=== PATIENT | male | born 1975 ===

== ENCOUNTER 2017-02-18 09:32 | Emergency (ER) | payer BC ==
[2017-02-18 09:45] VITALS: BMI 20.1
--- NOTE | 2017-02-18 09:48 | ED PDOC ---
HPI: Chest Pain Time Seen by Provider: 02/18/17 09:35 Chief Complaint (Nursing): Chest Pain Chief Complaint (Provider): Chest Pain History Per: Patient History/Exam Limitations: no limitations Onset/Duration Of Symptoms: Hrs Current Symptoms Are (Timing): Still Present Quality: "Pain" Modifying Factors: None Exacerbating Factors: None Alleviating Factors: None Additional Complaint(s): Patient is a 41 year old male who presents to ED for chest pain left sided and left arm pain that began last night. Patient states he has a history of high cholesterol but is non complaint with medication. States that due to the pain last night he did take his Simvistatin. Pain is described as left sided with radiation into the left arm and not feeling well. Patient also reports that he boarder line DM but no physical exam/primary doctor in 2 years. Of note patient last used Cocaine 2 days ago and last alcoholic drink 8 days ago. Past Medical History Reviewed: Historical Data, Nursing Documentation, Vital Signs Vital Signs: Last Vital Signs Temp 97.6 F 02/18/17 10:16 Pulse 69 02/18/17 10:16 Resp 20 02/18/17 10:16 BP 90/70 L 02/18/17 10:16 Pulse Ox 99 02/18/17 10:21 - Medical History PMH: Diabetes, Hypercholesterolemia Denies: Chronic Kidney Disease - Surgical History Other surgeries: left wrist - Family History Family History: States: No Known Family Hx - Social History Current smoker - smoking cessation education provided: Yes Alcohol: Occasional (last dirnk 8 days ago) Drugs: Cocaine (occ) - Home Medications Home Medications: Ambulatory Orders Medication Instructions Recorded [place]-3 Fatty Acids/Fish Oil [Fish 1,000 mg PO BID 02/18/17 Oil 1,000 mg Capsule] Rosuvastatin Calcium [Crestor] 5 mg PO DAILY 02/18/17 - Allergies Allergies/Adverse Reactions: Allergies Allergy/AdvReac Type Severity Reaction Status Date / Time chlorpromazine HCl Allergy ANAPHYLAXIS Verified 02/18/17 09:46 [From Thorazine] lithium Allergy ANAPHYLAXIS Verified 02/18/17 09:46 shellfish derived Allergy ANAPHYLAXIS Verified 02/18/17 09:46 LEIGHA Risk Score for UA/NSTEMI - LEIGHA Risk Score Age > 64: NO 3 or more CAD Risk Factors: YES Known CAD (Stenosis greater than 50%): NO Aspirin use in past 7 days: NO Severe Angina: YES EKG ST changes greater than 0.5mm: YES Positive Cardiac Marker: NO LEIGHA Score: 3 Risk %: 13% Review of Systems ROS Statement: Except As Marked, All Systems Reviewed And Found Negative Cardiovascular: Positive for: Chest Pain (left arm [place]). Negative for: Palpitations, Light Headedness Respiratory: Negative for: Shortness of Breath Gastrointestinal: Negative for: Nausea, Vomiting, Abdominal Pain Musculoskeletal: Negative for: Neck Pain Skin: Negative for: Rash Physical Exam - Reviewed Nursing Documentation Reviewed: Yes Vital Signs Reviewed: Yes - Physical Exam Appears: Positive for: Non-toxic, In Acute Distress Head Exam: Positive for: ATRAUMATIC Skin: Positive for: Normal Color, Warm. Negative for: Diaphoresis Neck: Positive for: Normal, Painless ROM Cardiovascular/Chest: Positive for: Regular Rate, Rhythm. Negative for: Murmur , Tachycardia Respiratory: Positive for: Normal Breath Sounds. Negative for: Respiratory Distress Gastrointestinal/Abdominal: Positive for: Normal Exam. Negative for: Tenderness Back: Positive for: Normal Inspection Extremity: Positive for: Normal ROM. Negative for: Pedal Edema, Calf Tenderness Neurologic/Psych: Positive for: Alert, Oriented - Laboratory Results Result Diagrams: 02/18/17 09:45 02/18/17 09:45 - ECG ECG: Positive for: Interpreted By Me ECG Rhythm: Positive for: ST/T Changes Interpretation Of Abn EKG: (+) ST elevation O2 Sat by Pulse Oximetry: 99 (RA) Pulse Ox Interpretation: Normal - Core Measure Core Measure Indicators: Code Heart - Critical Care Total Time (In Min): 30 Medical Decision Making Medical Decision Making: Time: 939 Initial impression: Chest pain Initial plan: 0939: EKG performed 0941:Code heart called upon my reviewe of EKG appears to be inferior wall ST elevation. Case discussed with Dr. Kaba cath automation qa lead - he recommended Brilinta , ASA 325, Heparin Bolus and Heparin Drip Case discussed with [facility] who is preparing the crime laboratory analyst and [facility] contacted, pending arrival Given that this is an inferior wall MO and systolic bp is 108, Nitro will be with held and 2 mg Morphine given instead to treat pain -- Type and screen -- CMP -- Troponin -- CBC -- PT/PTT -- ASA, Brilinta, Heparin bolus and drip as per Dr Angeles instructions pt reevaluated sevearl times while in the ER. vitals stable. 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 pt reports that he does not want a blood transfusion at any time. Instructed that this information will be documented but he will need to relay this information to the staff at [facility]. Time: 1005 [facility] in ED ready for transport DX ACUTE MO inferior wall Scribe Attestation: Documented by Charlotte Maravilla acting as a scribe for Pedro Javed MD MD Scribe Attestation: All medical record entries made by the Scribe were at my direction and personally dictated by me. I have reviewed the chart and agree that the record accurately reflects my personal performance of the history, physical exam, medical decision making, and the department course for this patient. I have also personally directed, reviewed, and agree with the discharge instructions and disposition. Disposition - Clinical Impression Clinical Impression: Chest pain, Acute MO - Patient ED Disposition Is Patient to be Admitted: Yes - Disposition Disposition: Other Institution ([facility] warehouse general laborer) Disposition Time: 10:00 Condition: SERIOUS
[2017-02-18] MEDS ORDERED: Heparin25000 units/250ml 1/2NS 250 ML IV ONE (09:50)
[2017-02-18 10:04] LABS: BASO % 0.5 % (0.0-2.0); EOS # 0.1 K/uL (0.0-0.7); EOS % 0.9 % (0.0-4.0); HEMATOCRIT 45.4 % (35.0-51.0); LYMPH # 1.6 K/uL (1.0-4.3); LYMPH % 18.5 % (20.0-40.0); MEAN CELL VOLUME 84.8 fl (80.0-94.0); MEAN CORPUSCULAR HEMOGLOBIN 29.2 pg (27.0-31.0); MEAN CORPUSCULAR HGB CONC 34.5 g/dL (33.0-37.0); MONO # 0.9 K/uL (0.0-0.8); MONO % 11.2 % (0.0-10.0); NEUT # 5.8 K/uL (1.8-7.0); NEUT % 68.9 % (50.0-75.0); RED CELL DISTRIBUTION WIDTH 13.4 % (11.5-14.5); WHITE BLOOD COUNT 8.5 K/uL (4.8-10.8)
[2017-02-18 10:07] VITALS: BP 90/70; RESP 20
[2017-02-18] MEDS ORDERED: Sodium Chloride 0.9% 1,000 ML IV STA (10:07)
[2017-02-18 10:08] VITALS: O2SAT 99
[2017-02-18 10:13] LABS: CHLORIDE 102 mmol/L (98-107); POTASSIUM 4.1 MMOL/L (3.6-5.0); SODIUM 141 mmol/l (132-148)
[2017-02-18] MEDS ORDERED: Heparin 25,000units in D5W 250 ML IV SCH (10:15)
[2017-02-18] MEDS ORDERED: Heparin 25,000units in D5W 250 ML IV ONE (10:15)
[2017-02-18 10:16] LABS: ALB/GLOB RATIO 1.2 (1.0-2.1); ALKALINE PHOSPHATASE 64 U/L (38-126); ALT/SGPT 44 U/L (21-72); AST/SGOT 78 U/L (17-59); BILIRUBIN,TOTAL 0.6 mg/dl (0.2-1.3); BLOOD UREA NITROGEN 15 mg/dl (9-20); CALCIUM 9.2 mg/dL (8.4-10.2); CARBON DIOXIDE 25 mmol/L (22-30); GFR AFRICAN-AMERICAN > 60; GLUCOSE,RANDOM 131 mg/dL (75-110); TOTAL PROTEIN 7.8 G/DL (6.3-8.2)
[2017-02-18 10:19] VITALS: PULSE 69; TEMP 97.6
[2017-02-18 10:29] LABS: PARTIAL THROMBOPLASTIN TIME 29.4 SECONDS (23.3-32.5)
== END 2017-02-18 10:15 | disposition short-term general hospital (02) ==
LOC: H.ER 09:32
DX: I21.3 ST elevation (STEMI) myocardial infarction of unspecified site (principal); R07.9 Chest pain, unspecified; E11.9 Type 2 diabetes mellitus without complications; F17.200 Nicotine dependence, unspecified, uncomplicated; E78.00 Pure hypercholesterolemia, unspecified
CPT/HCPCS: 80053; 82948; 84484; 85025; 85610; 85730; 96374; 99285; J1644; J2270

== ENCOUNTER 2017-06-02 03:16 | Observation (INO) | payer BC ==
[2017-06-02 03:17] VITALS: BMI 20.1
--- NOTE | 2017-06-02 04:09 | ED PDOC ---
HPI: Chest Pain Time Seen by Provider: 06/02/17 03:49 Chief Complaint (Nursing): Trauma Chief Complaint (Provider): chest pain, left arm pain History Per: Patient History/Exam Limitations: no limitations Onset/Duration Of Symptoms: Days (3), Waxing/Waning Additional History Per: Patient Additional Complaint(s): 41 y/o male presents for eval of intermittent chest pain x 3 days, none at present. Patient states he came to ED tonight because he began to feel pain, with "tingling" sensation in left arm; and that these symptoms were similar to when he was diagnosed with a heart attack in february of this year. Patient states he has been under a lot of stress at work and is unsure if this could be stress/anxiety related, but notes waking up from sleep worried. Denies fever, cough, congestion, shortness of breath, palpitations, leg pain/swelling, recent travel, tobacco use. PMD: [place] Past Medical History Reviewed: Historical Data, Nursing Documentation, Vital Signs Vital Signs: Last Vital Signs Temp 98 F 06/02/17 03:56 Pulse 96 H 06/02/17 03:56 Resp 18 06/02/17 03:56 BP 135/81 06/02/17 03:56 Pulse Ox 97 06/02/17 05:14 - Medical History PMH: Hypercholesterolemia Denies: Chronic Kidney Disease - Surgical History Surgical History: No Surg Hx - Family History Family History: States: Unknown Family Hx - Home Medications Home Medications: Ambulatory Orders Medication Instructions Recorded [place]-3 Fatty Acids/Fish Oil [Fish 1,000 mg PO BID 02/18/17 Oil 1,000 mg Capsule] Rosuvastatin Calcium [Crestor] 5 mg PO DAILY 02/18/17 - Allergies Allergies/Adverse Reactions: Allergies Allergy/AdvReac Type Severity Reaction Status Date / Time chlorpromazine HCl Allergy ANAPHYLAXIS Verified 02/18/17 09:46 [From Thorazine] lithium Allergy ANAPHYLAXIS Verified 02/18/17 09:46 shellfish derived Allergy ANAPHYLAXIS Verified 02/18/17 09:46 LEIGHA Risk Score for UA/NSTEMI - LEIGHA Risk Score Age > 64: NO 3 or more CAD Risk Factors: NO Known CAD (Stenosis greater than 50%): NO Aspirin use in past 7 days: YES Severe Angina: NO EKG ST changes greater than 0.5mm: NO Positive Cardiac Marker: NO LEIGHA Score: 1 Risk %: 5% Review of Systems ROS Statement: Except As Marked, All Systems Reviewed And Found Negative Cardiovascular: Positive for: Chest Pain Musculoskeletal: Positive for: Arm Pain Physical Exam - Reviewed Nursing Documentation Reviewed: Yes Vital Signs Reviewed: Yes - Physical Exam Appears: Positive for: Well, Non-toxic, No Acute Distress Head Exam: Positive for: ATRAUMATIC, NORMAL INSPECTION, NORMOCEPHALIC Skin: Positive for: Normal Color Eye Exam: Positive for: Normal appearance ENT: Positive for: Normal ENT Inspection Cardiovascular/Chest: Positive for: Regular Rate, Rhythm Respiratory: Positive for: Normal Breath Sounds Gastrointestinal/Abdominal: Positive for: Normal Exam Back: Positive for: Normal Inspection Extremity: Positive for: Normal ROM Neurologic/Psych: Positive for: Alert, Oriented - Laboratory Results Result Diagrams: 06/02/17 04:25 06/02/17 04:25 - ECG ECG: Positive for: Viewed By Me (reviewed by ED attending) ECG Rhythm: Positive for: Sinus Rhythm O2 Sat by Pulse Oximetry: 97 Pulse Ox Interpretation: Normal - Radiology X-Ray: Viewed By Me X-Ray Interpretation: No Acute Disease - Progress ED Course And Treament: labs, ekg, chest xray, Nitro SL Chart reviewed, concluded to have had vasospastic acute OH, likely secondary to cocaine use. Will place in tele observation for chest pain to rule out ACS. Dr. Mera spoke with Ethan Stevens NP regarding admission. Disposition - Clinical Impression Clinical Impression: Chest pain - Disposition Disposition Time: 05:07 Condition: FAIR - Pt Status Changed To: Hospital Disposition Of: Observation - POA Present On Arrival: None
[2017-06-02 04:30] LABS: BASO % 0.6 % (0.0-2.0); EOS % 0.4 % (0.0-4.0); HEMOGLOBIN 15.6 g/dL (12.0-18.0); LYMPH # 1.6 K/uL (1.0-4.3); LYMPH % 26.1 % (20.0-40.0); MEAN CELL VOLUME 84.2 fl (80.0-94.0); MEAN CORPUSCULAR HEMOGLOBIN 28.6 pg (27.0-31.0); MEAN CORPUSCULAR HGB CONC 33.9 g/dL (33.0-37.0); MEAN PLATELET VOLUME 7.4 fl (7.2-11.7); MONO # 0.4 K/uL (0.0-0.8); MONO % 6.8 % (0.0-10.0); NEUT % 66.1 % (50.0-75.0); NRBC % 0.2 % (0.0-0.0); RBC 5.45 Mil/uL (4.40-5.90); RED CELL DISTRIBUTION WIDTH 13.8 % (11.5-14.5)
[2017-06-02 04:37] LABS: ALB/GLOB RATIO 1.3 (1.0-2.1); ALBUMIN 4.7 g/dL (3.5-5.0); ALT/SGPT 50 U/L (21-72); AST/SGOT 29 U/L (17-59); BLOOD UREA NITROGEN 12 mg/dl (9-20); CALCIUM 9.5 mg/dL (8.4-10.2); GFR AFRICAN-AMERICAN > 60; GFR NON-AFRICAN AMERICAN > 60
[2017-06-02 04:47] LABS: BARBITURATES, UR NEGATIVE (NEGATIVE); BENZODIAZEPINES, UR NEGATIVE (NEGATIVE); OPIATES, UR NEGATIVE (NEGATIVE); PHENCYCLIDINE, UR NEGATIVE (NEGATIVE)
--- NOTE | 2017-06-02 07:29 | CP.PCM.HP ---
History of Present Illness - History of Present Illness History of Present Illness: pt admitted for left arm numbness/palpitations yesterday. pt had cp 2 days ago after being stressed at a movie. this pain was relieved w/ walking. at present. no f/c, n/v/d. no cp, dyspnea palpitations. 1st trop negative Present on Admission - Present on Admission Any Indicators Present on Admission: No Review of Systems - Cardiovascular Cardiovascular: As Per HPI, Chest Pain, Palpitations Past Patient History - Past Social History Smoking Status: Former Smoker - CARDIAC Hx Cardiac Disorders: Yes - PULMONARY Hx Respiratory Disorders: No - NEUROLOGICAL Hx Neurological Disorder: No - RENAL Hx Chronic Kidney Disease: No - HEMATOLOGICAL/ONCOLOGICAL Hx Blood Disorders: No - INTEGUMENTARY Hx Dermatological Problems: No - GASTROINTESTINAL Hx Gastrointestinal Disorders: No - GENITOURINARY/GYNECOLOGICAL Hx Genitourinary Disorders: No - PSYCHIATRIC Hx Psychophysiologic Disorder: No Hx Substance Use: Yes - SURGICAL HISTORY Hx Surgeries: Yes Other/Comment: cyst removed from left wrist 2014 - ANESTHESIA Hx Anesthesia: Yes Meds Allergies/Adverse Reactions: Allergies Allergy/AdvReac Type Severity Reaction Status Date / Time chlorpromazine HCl Allergy ANAPHYLAXIS Verified 02/18/17 09:46 [From Thorazine] lithium Allergy ANAPHYLAXIS Verified 02/18/17 09:46 shellfish derived Allergy ANAPHYLAXIS Verified 02/18/17 09:46 Physical Exam - Constitutional Appears: Well, Non-toxic, No Acute Distress - Head Exam Head Exam: ATRAUMATIC, NORMAL INSPECTION, NORMOCEPHALIC - Eye Exam Eye Exam: EOMI, Normal appearance, PERRL Pupil Exam: NORMAL ACCOMODATION, PERRL - ENT Exam ENT Exam: Mucous Membranes Moist, Normal Exam - Neck Exam Neck exam: Positive for: Normal Inspection - Respiratory Exam Respiratory Exam: Clear to Auscultation Bilateral, NORMAL BREATHING PATTERN - Cardiovascular Exam Cardiovascular Exam: REGULAR RHYTHM, RRR, +S1, +S2 - GI/Abdominal Exam GI & Abdominal Exam: Normal Bowel Sounds, Soft. absent: Tenderness - Extremities Exam Extremities exam: Positive for: full ROM, normal capillary refill, normal inspection, pedal pulses present - Back Exam Back exam: NORMAL INSPECTION - Neurological Exam Neurological exam: Alert, CN II-XII Intact, Normal Gait, Oriented x3, Reflexes Normal - Psychiatric Exam Psychiatric exam: Normal Affect, Normal Mood - Skin Skin Exam: Dry, Intact, Normal Color, Warm Results - Vital Signs Recent Vital Signs: Last Vital Signs Temp 97.7 F 06/02/17 06:25 Pulse 62 06/02/17 06:25 Resp 20 06/02/17 06:25 BP 123/74 06/02/17 06:25 Pulse Ox 99 06/02/17 06:25 - Labs Result Diagrams: 06/02/17 04:25 06/02/17 04:25 Labs: Laboratory Results - last 24 hr 06/02/17 06/02/17 06/02/17 04:25 04:25 04:29 WBC 6.0 RBC 5.45 Hgb 15.6 Hct 45.9 MCV 84.2 MCH 28.6 MCHC 33.9 RDW 13.8 Plt Count 241 MPV 7.4 Neut % (Auto) 66.1 Lymph % (Auto) 26.1 [place] % (Auto) 6.8 Eos % (Auto) 0.4 Baso % (Auto) 0.6 Neut # 4.0 Lymph # 1.6 Dewitt # 0.4 Eos # 0.0 Baso # 0.0 Sodium 141 Potassium 4.1 Chloride 105 Carbon Dioxide 23 Anion Gap 17 BUN 12 Creatinine 0.9 Est GFR ( Amer) > 60 Est GFR (Non-Af Amer) > 60 Random Glucose 102 Calcium 9.5 Total Bilirubin 0.4 AST 29 ALT 50 Alkaline Phosphatase 52 Troponin I < 0.0120 Total Protein 8.4 H Albumin 4.7 Globulin 3.6 Albumin/Globulin Ratio 1.3 Urine Opiates Screen Negative Urine Methadone Screen Negative Ur Barbiturates Screen Negative Ur Phencyclidine Scrn Negative Ur Amphetamines Screen Negative U Benzodiazepines Scrn Negative U Oth Cocaine Metabols Negative U Cannabinoids Screen Negative Assessment & Plan (1) DVT prophylaxis Assessment and Plan: scd nad aehose ambulation Status: Acute (2) Chest pain Assessment and Plan: trops cardio pt has h/o stemi-cocaine induced ntg prn Status: Acute Decision To Admit - Pt Status Changed To: Hospital Disposition Of: Observation - . Bed Request Type: Telemetry Admitting Physician: John Guzmán
[2017-06-02 08:18] VITALS: RESP 18
[2017-06-02] MEDS ORDERED: Omega-3-Acid Ethyl Esters 1 GM Cap PO SCH (09:00)
--- NOTE | 2017-06-02 14:17 | RAD ---
HISTORY: Chest pain COMPARISON: 02/24/2015 TECHNIQUE: Chest PA and lateral FINDINGS: LUNGS: No active pulmonary disease. PLEURA: No significant pleural effusion identified. No pneumothorax apparent. CARDIOVASCULAR: Normal. OSSEOUS STRUCTURES: No significant abnormalities. VISUALIZED UPPER ABDOMEN: Normal. OTHER FINDINGS: None. IMPRESSION: No active disease. No significant interval change compared to the prior examination(s).
[2017-06-02 16:07] VITALS: BP 120/75; PULSE 65; TEMP 97.5; O2SAT 99
--- NOTE | 2017-06-02 16:58 | CP.PCM.DIS ---
Provider - Provider Date of Admission: 06/02/17 04:20 Attending physician: John Guzmán MD Time Spent in preparation of Discharge (in minutes): 15 Diagnosis - Discharge Diagnosis (1) DVT prophylaxis Status: Acute (2) Chest pain Status: Acute Hospital Course - Lab Results Lab Results: Most Recent Lab Values WBC 6.0 K/uL (4.8-10.8) 06/02/17 04:25 RBC 5.45 Mil/uL (4.40-5.90) 06/02/17 04:25 Hgb 15.6 g/dL (12.0-18.0) 06/02/17 04:25 Hct 45.9 % (35.0-51.0) 06/02/17 04:25 MCV 84.2 fl (80.0-94.0) 06/02/17 04:25 MCH 28.6 pg (27.0-31.0) 06/02/17 04:25 MCHC 33.9 g/dL (33.0-37.0) 06/02/17 04:25 RDW 13.8 % (11.5-14.5) 06/02/17 04:25 Plt Count 241 K/uL (130-400) 06/02/17 04:25 MPV 7.4 fl (7.2-11.7) 06/02/17 04:25 Neut % (Auto) 66.1 % (50.0-75.0) 06/02/17 04:25 Lymph % (Auto) 26.1 % (20.0-40.0) 06/02/17 04:25 [place] % (Auto) 6.8 % (0.0-10.0) 06/02/17 04:25 Eos % (Auto) 0.4 % (0.0-4.0) 06/02/17 04:25 Baso % (Auto) 0.6 % (0.0-2.0) 06/02/17 04:25 Neut # 4.0 K/uL (1.8-7.0) 06/02/17 04:25 Lymph # 1.6 K/uL (1.0-4.3) 06/02/17 04:25 [place] # 0.4 K/uL (0.0-0.8) 06/02/17 04:25 Eos # 0.0 K/uL (0.0-0.7) 06/02/17 04:25 Baso # 0.0 K/uL (0.0-0.2) 06/02/17 04:25 Sodium 141 mmol/l (132-148) 06/02/17 04:25 Potassium 4.1 MMOL/L (3.6-5.0) 06/02/17 04:25 Chloride 105 mmol/L (98-107) 06/02/17 04:25 Carbon Dioxide 23 mmol/L (22-30) 06/02/17 04:25 Anion Gap 17 (10-20) 06/02/17 04:25 BUN 12 mg/dl (9-20) 06/02/17 04:25 Creatinine 0.9 mg/dL (0.8-1.5) 06/02/17 04:25 Est GFR ( Amer) > 60 06/02/17 04:25 Est GFR (Non-Af Amer) > 60 06/02/17 04:25 Random Glucose 102 mg/dL (75-110) 06/02/17 04:25 Calcium 9.5 mg/dL (8.4-10.2) 06/02/17 04:25 Total Bilirubin 0.4 mg/dl (0.2-1.3) 06/02/17 04:25 AST 29 U/L (17-59) 06/02/17 04:25 ALT 50 U/L (21-72) 06/02/17 04:25 Alkaline Phosphatase 52 U/L (38-126) 06/02/17 04:25 Troponin I < 0.0120 ng/mL (0.00-0.120) 06/02/17 12:27 Total Protein 8.4 G/DL (6.3-8.2) H 06/02/17 04:25 Albumin 4.7 g/dL (3.5-5.0) 06/02/17 04:25 Globulin 3.6 gm/dL (2.2-3.9) 06/02/17 04:25 Albumin/Globulin Ratio 1.3 (1.0-2.1) 06/02/17 04:25 Urine Opiates Screen Negative (NEGATIVE) 06/02/17 04:29 Urine Methadone Screen Negative (NEGATIVE) 06/02/17 04:29 Ur Barbiturates Screen Negative (NEGATIVE) 06/02/17 04:29 Ur Phencyclidine Scrn Negative (NEGATIVE) 06/02/17 04:29 Ur Amphetamines Screen Negative (NEGATIVE) 06/02/17 04:29 U Benzodiazepines Scrn Negative (NEGATIVE) 06/02/17 04:29 U Oth Cocaine Metabols Negative (NEGATIVE) 06/02/17 04:29 U Cannabinoids Screen Negative (NEGATIVE) 06/02/17 04:29 Discharge Exam - Head Exam Head Exam: ATRAUMATIC, NORMAL INSPECTION, NORMOCEPHALIC Discharge Plan - Follow Up Plan Condition: FAIR Disposition: HOME/ ROUTINE Additional Instructions: cleared by cardio. trop negative x 2. final dx-cp, rted prn, meds per med rec, f/u rmg 2 days
--- NOTE | 2017-06-02 17:46 | CP.PCM.CON ---
History of Present Illness - History of Present Illness History of Present Illness: I was asked to see patient by Dr. Guzmán and Ethan Stevens APN. Patient is a 41 year old male with PMH [place] who presents with chest pain. The patient had a previous NSTEMI in association with recreational drug usage. He had a cardiac cath which reporytedly was negative for CAD. The patient reports usbsternal chest discomfort. He though he had heaviness in the arm. He became anxious and went to the hospital for further management. Review of Systems - Constitutional Constitutional: absent: As Per HPI, Anorexia, Chills, Daytime Sleepiness, Excessive Sweating, Fatigue, Fever, Frequent Falls, Headache, Increased Appetite , Lethargy, Malaise, Night Sweats, Snoring, Sleep Apnea, Weight Gain, Weight Loss, Weakness, Other - EENT Eyes: absent: As Per HPI, Blind Spots, Blurred Vision, Change in Vision, Decreased Night Vision, Diplopia, Discharge, Dry Eye, Exophthalmos, Floaters, Irritation, Itchy Eyes, Loss of Peripheral Vision, Pain, Photophobia, Requires Corrective Lenses, Sees Flashes, Spots in Vision, Tunnel Vision, Other Visual Disturbances, Loss of Vision, Other Ears: absent: As Per HPI, Decreased Hearing, Ear Discharge, Ear Pain, Tinnitus, Abnormal Hearing, Disequilibrium, Dizziness, Other Nose/Mouth/Throat: absent: As Per HPI, Epistaxis, Nasal Congestion, Nasal Discharge, Nasal Obstruction, Nasal Trauma, Nose Pain, Post Nasal Drip, Sinus Pain, Sinus Pressure, Bleeding Gums, Change in Voice, Dental Pain, Dry Mouth, Dysphagia, Halitosis, Hoarsness, Lip Swelling, Mouth Lesions, Mouth Pain, Odynophagia, Sore Throat, Throat Swelling, Tongue Swelling, Facial Pain, Neck Pain, Neck Mass, Other - Cardiovascular Cardiovascular: Chest Pain - Respiratory Respiratory: absent: As Per HPI, Cough, Dyspnea, Hemoptysis, Dyspnea on Exertion , Wheezing, Snoring, Stridor, Pain on Inspiration, Chest Congestion, Excessive Mucous Production, Change in Mucous Color, Pain with Coughing, Other - Gastrointestinal Gastrointestinal: absent: As Per HPI, Abdominal Pain, Belching, Bloating, Change in Bowel Habits, Change in Stool Character, Coffee Ground Emesis, Constipation, Cramping, Diarrhea, Dyspepsia, Dysphagia, Early Satiety, Excessive Flatus, Fecal Incontinence, Heartburn, Hematemesis, Hematochezia, Loose Stools, Melena, Nausea, Odynophagia, Temesmus, Vomiting, Other - Genitourinary Genitourinary: absent: As Per HPI, Change in Urinary Stream, Difficulty Urinating, Dysuria, Flank Pain, Hematuria, Pyuria, Nocturia, Urinary Incontinence, Urinary Frequency, Urinary Hesitance, Urinary Urgency, Voiding Freq/Small Amts, Freq UTI, Hx Renal/Bladder Calculi, Hx /Renal Surgery, Bladder Distension, Other - Musculoskeletal Musculoskeletal: absent: As Per HPI, Abnormal Gait, Arthralgias, Atrophy, Back Pain, Deformity, Joint Swelling, Limited Range of Motion, Loss of Height, Muscle Cramps, Muscle Weakness, Myalgias, Neck Pain, Numbness, Radiating Pain into Limb, Stiffness, Tingling, Other - Integumentary Integumentary: absent: As Per HPI, Acne, Alopecia, Bleeding Lesions, Change in Hair, Change in Nails, Change in Pigmentation, Changing Lesions, Dry Skin, Erythema, Furuncle, Hirsutism, Lesions, New Lesions, Non-Healing Lesions, Photosensitivity, Pruritus, Rash, Skin Pain, Skin Ulcer, Sores, Striae, Swelling , Unusual Bruising, Wounds, Jaundice, Other - Neurological Neurological: absent: As Per HPI, Abnormal Gait, Abnormal Hearing, Abnormal Movements, Abnormal Speech, Behavioral Changes, Burning Sensations, Confusion, Convulsions, Disequilibrium, Dizziness, Numbness, Focal Weakness, Frequent Falls , Headaches, Lack of Coordination, Loss of Vision, Memory Loss, Paresthesias, Radicular Pain, Restless Legs, Sensory Deficit, Syncope, Tingling, Tremor, Vertigo, Weakness, Other Visual Disturbances, Other - Psychiatric Psychiatric: absent: As Per HPI, Abnormal Sleep Pattern, Anhedonia, Anxiety, Auditory Hallucinations, Behavioral Changes, Change in Appetite, Change in Libido, Confusion, Depression, Difficulty Concentrating, Hallucinations, Homicidal Ideation, Hopelessness, Irritability, Memory Loss, Mood Swings, Panic Attacks, Paranoia, Suicidal Ideation, Visual Hallucinations, Tactile Hallucinations, Other - Endocrine Endocrine: absent: As Per HPI, Change in Body Appearance, Change in Libido, Cold Intolorance, Deepening of Voice, Excessive Sweating, Fatigue, Flushing, Heat Intolorance, Increase in Ring/Shoe/Hat Size, Palpitations, Polydipsia, Polyphagia, Polyuria, Other - Hematologic/Lymphatic Hematologic: absent: As Per HPI, Easy Bleeding, Easy Bruising, Lymphadenopathy, Other Past Patient History - Past Social History Smoking Status: Former Smoker - CARDIAC Hx Cardiac Disorders: Yes - PULMONARY Hx Respiratory Disorders: No - NEUROLOGICAL Hx Neurological Disorder: No - RENAL Hx Chronic Kidney Disease: No - HEMATOLOGICAL/ONCOLOGICAL Hx Blood Disorders: No - INTEGUMENTARY Hx Dermatological Problems: No - MUSCULOSKELETAL/RHEUMATOLOGICAL Hx Falls: No - GASTROINTESTINAL Hx Gastrointestinal Disorders: No - GENITOURINARY/GYNECOLOGICAL Hx Genitourinary Disorders: No - PSYCHIATRIC Hx Psychophysiologic Disorder: No Hx Substance Use: Yes - SURGICAL HISTORY Hx Surgeries: Yes Other/Comment: cyst removed from left wrist 2013 - ANESTHESIA Hx Anesthesia: Yes Meds Allergies/Adverse Reactions: Allergies Allergy/AdvReac Type Severity Reaction Status Date / Time chlorpromazine HCl Allergy ANAPHYLAXIS Verified 02/18/17 09:46 [From Thorazine] lithium Allergy ANAPHYLAXIS Verified 02/18/17 09:46 shellfish derived Allergy ANAPHYLAXIS Verified 02/18/17 09:46 - Medications Medications: Current Medications Aspirin (Aspirin Chewable) 81 mg PO DAILY [facility] Last Admin: 06/02/17 14:41 Dose: Not Given Atorvastatin Calcium (Lipitor) 10 mg PO DAILY [facility] Last Admin: 06/02/17 14:42 Dose: Not Given Nitroglycerin (Nitrostat Sl Tab) 0.4 mg SL Q5M PRN PRN Reason: cp [id number] Ethyl Esters (Lovaza) 1 gm PO BID [facility] Last Admin: 06/02/17 14:40 Dose: Not Given Physical Exam - Constitutional Appears: Non-toxic - Head Exam Head Exam: NORMAL INSPECTION - Eye Exam Eye Exam: Normal appearance - ENT Exam ENT Exam: Mucous Membranes Moist - Neck Exam Neck exam: Positive for: Full Rom - Respiratory Exam Respiratory Exam: NORMAL BREATHING PATTERN - Cardiovascular Exam Cardiovascular Exam: REGULAR RHYTHM - GI/Abdominal Exam GI & Abdominal Exam: Normal Bowel Sounds - Rectal Exam Rectal Exam: Deferred - Extremities Exam Extremities exam: Positive for: pedal pulses present - Back Exam Back exam: NORMAL INSPECTION - Neurological Exam Neurological exam: Reflexes Normal - Skin Skin Exam: Dry Results - Vital Signs Recent Vital Signs: Last Vital Signs Temp 97.5 F L 06/02/17 16:00 Pulse 65 06/02/17 16:00 Resp 18 06/02/17 16:00 BP 120/75 06/02/17 16:00 Pulse Ox 99 06/02/17 16:00 - Labs Result Diagrams: 06/02/17 04:25 06/02/17 04:25 Labs: Laboratory Results - last 24 hr 06/02/17 06/02/17 06/02/17 04:25 04:25 04:29 WBC 6.0 RBC 5.45 Hgb 15.6 Hct 45.9 MCV 84.2 MCH 28.6 MCHC 33.9 RDW 13.8 Plt Count 241 MPV 7.4 Neut % (Auto) 66.1 Lymph % (Auto) 26.1 [place] % (Auto) 6.8 Eos % (Auto) 0.4 Baso % (Auto) 0.6 Neut # 4.0 Lymph # 1.6 [place] # 0.4 Eos # 0.0 Baso # 0.0 Sodium 141 Potassium 4.1 Chloride 105 Carbon Dioxide 23 Anion Gap 17 BUN 12 Creatinine 0.9 Est GFR ( Amer) > 60 Est GFR (Non-Af Amer) > 60 Random Glucose 102 Calcium 9.5 Total Bilirubin 0.4 AST 29 ALT 50 Alkaline Phosphatase 52 Troponin I < 0.0120 Total Protein 8.4 H Albumin 4.7 Globulin 3.6 Albumin/Globulin Ratio 1.3 Urine Opiates Screen Negative Urine Methadone Screen Negative Ur Barbiturates Screen Negative Ur Phencyclidine Scrn Negative Ur Amphetamines Screen Negative U Benzodiazepines Scrn Negative U Oth Cocaine Metabols Negative U Cannabinoids Screen Negative 06/02/17 12:27 WBC RBC Hgb Hct MCV MCH MCHC RDW Plt Count MPV Neut % (Auto) Lymph % (Auto) [place] % (Auto) Eos % (Auto) Baso % (Auto) Neut # Lymph # [place] # Eos # Baso # Sodium Potassium Chloride Carbon Dioxide Anion Gap BUN Creatinine Est GFR ( Amer) Est GFR (Non-Af Amer) Random Glucose Calcium Total Bilirubin AST ALT Alkaline Phosphatase Troponin I < 0.0120 Total Protein Albumin Globulin Albumin/Globulin Ratio Urine Opiates Screen Urine Methadone Screen Ur Barbiturates Screen Ur Phencyclidine Scrn Ur Amphetamines Screen U Benzodiazepines Scrn U Oth Cocaine Metabols U Cannabinoids Screen - EKG Data EKG Interpreted by: Myself EKG shows normal: Sinus rhythm Assessment & Plan (1) Chest pain Assessment and Plan: the patienthas negative cardiac enzymes. It is unlikley that patient has coronray event. he is stable for discharge. risk factor modification was dicussed. Status: Acute
--- NOTE | 2017-06-02 19:34 | CARD ---
APPROVED REPORT EKG Measurement Heart [id number] [id number] <Conclusion> Normal sinus rhythm Normal ECG
== END 2017-06-02 17:30 | disposition home or self-care (01) ==
LOC: H.ER 03:16 → H.ERHOLD 04:20 → H.TEL 06:21
PROVIDERS: ADMIT Family Medicine; ATTEND Family Medicine
DX: R07.9 Chest pain, unspecified (principal); E78.00 Pure hypercholesterolemia, unspecified; I25.2 Old myocardial infarction; Z79.899 Other long term (current) drug therapy; Z87.891 Personal history of nicotine dependence
CPT/HCPCS: 71020; 80053; 84484; 85025; 93005; 99282; G0378; G0480

== ENCOUNTER 2017-10-18 10:36 | Emergency (ER) | payer BC ==
--- NOTE | 2017-10-18 11:07 | ED PDOC ---
HPI: General Adult Time Seen by Provider: 10/18/17 10:50 Chief Complaint (Provider): Arm tingling, palpitations History Per: Patient History/Exam Limitations: no limitations Onset/Duration Of Symptoms: Days (x1) Current Symptoms Are (Timing): Better Additional Complaint(s): Harjinder Fonseca is a 42 year old male who presents to the ED complaining of palpitations and feeling anxious this morning. He states that last night he was on a [employer] party bus for 7 hours and had 5-6 drinks, as well as a pill which he believes was ecstasy. When he arrived home, he experienced some tingling in his left arm and felt his heart rate was rapid. Patient denies any chest pain or shortness of breath. He took 2 tabs of Aspirin at home and reports symptoms have improved. Of note, patient suffered a heart attack about 6 months ago, which was treated with heparin but no emergent catheterization. He had a recent echocardiogram which he reports was normal and he does not take any daily medications. PMD: [place] Past Medical History Reviewed: Historical Data, Nursing Documentation, Vital Signs Vital Signs: Last Vital Signs Temp 97.9 F 10/18/17 11:06 Pulse 86 10/18/17 13:17 Resp 18 10/18/17 11:06 BP 123/71 10/18/17 11:06 Pulse Ox 97 10/18/17 13:17 - Medical History PMH: AMI-NSTEMI, Hypercholesterolemia Denies: Chronic Kidney Disease - Family History Family History: States: Unknown Family Hx - Home Medications Home Medications: Ambulatory Orders Medication Instructions Recorded [place]-3 Fatty Acids/Fish Oil [Fish 1,000 mg PO BID 02/18/17 Oil 1,000 mg Capsule] Rosuvastatin Calcium [Crestor] 5 mg PO DAILY 02/18/17 Aspirin [Aspirin Chewable] 81 mg PO DAILY 06/02/17 - Allergies Allergies/Adverse Reactions: Allergies Allergy/AdvReac Type Severity Reaction Status Date / Time chlorpromazine HCl Allergy ANAPHYLAXIS Verified 10/18/17 11:06 [From Thorazine] lithium Allergy ANAPHYLAXIS Verified 10/18/17 11:06 shellfish derived Allergy ANAPHYLAXIS Verified 10/18/17 11:06 Review of Systems ROS Statement: Except As Marked, All Systems Reviewed And Found Negative Cardiovascular: Positive for: Palpitations. Negative for: Chest Pain Respiratory: Negative for: Shortness of Breath Neurological: Positive for: Numbness (tingling to arm) Physical Exam - Reviewed Nursing Documentation Reviewed: Yes Vital Signs Reviewed: Yes - Physical Exam Appears: Positive for: Non-toxic, No Acute Distress Head Exam: Positive for: ATRAUMATIC, NORMAL INSPECTION, NORMOCEPHALIC Skin: Positive for: Normal Color, Warm, Dry Eye Exam: Positive for: Normal appearance, EOMI, Other (Pupils are 3-4 mm, equal and round) Neck: Positive for: Normal, Painless ROM Cardiovascular/Chest: Positive for: Regular Rate, Rhythm. Negative for: Murmur Respiratory: Positive for: Normal Breath Sounds. Negative for: Accessory Muscle Use, Respiratory Distress Gastrointestinal/Abdominal: Positive for: Normal Exam, Soft. Negative for: Tenderness Extremity: Positive for: Normal ROM. Negative for: Pedal Edema, Deformity Neurologic/Psych: Positive for: Alert, Oriented (x3) - Laboratory Results Result Diagrams: 10/18/17 11:35 10/18/17 11:35 - Progress Re-evaluation Time: 14:30 Condition: Re-examined, Improved Medical Decision Making Medical Decision Making: Time: 11:10 Initial Impression: Intoxication, dehydration, anxiety Initial Plan: * EKG * Acetaminophen * Salicylate * Urine drug screen * Alcohol serum * CMP * CBC w/ differential * Accucheck * Urinalysis * IV fluids * Reevaluation Labs reviewed, toxicology positive for cocaine. Alcohol level is 33. Time: 12:47 * Troponin I * CK-MB * CPK Scribe Attestation: Documented by Deepali Benoit, acting as a scribe for Regina Mantilla MD Provider Scribe Attestation: All medical record entries made by the Scribe were at my direction and personally dictated by me. I have reviewed the chart and agree that the record accurately reflects my personal performance of the history, physical exam, medical decision making, and the department course for this patient. I have also personally directed, reviewed, and agree with the discharge instructions and disposition. Disposition - Clinical Impression Clinical Impression: Alcohol intoxication, Cocaine abuse with intoxication - Patient ED Disposition Is Patient to be Admitted: No Doctor Will See Patient In The: Office - Disposition Disposition: Routine/Home Disposition Time: 15:01 Condition: IMPROVED Instructions: Alcohol Intoxication (ED), Polysubstance Abuse (ED) - POA Present On Arrival: None
[2017-10-18 11:09] VITALS: BP 123/71; RESP 18; TEMP 97.9
[2017-10-18 11:10] VITALS: BMI 28.1
[2017-10-18] MEDS ORDERED: Sodium Chloride 0.9% 1,000 ML IV STA (11:11)
[2017-10-18 11:41] LABS: BASO % 0.2 % (0.0-2.0); HEMATOCRIT 44.5 % (35.0-51.0); LYMPH # 1.9 K/uL (1.0-4.3); LYMPH % 20.3 % (20.0-40.0); MEAN CELL VOLUME 84.9 fl (80.0-94.0); MEAN CORPUSCULAR HGB CONC 34.1 g/dL (33.0-37.0); MEAN PLATELET VOLUME 7.6 fl (7.2-11.7); MONO # 0.5 K/uL (0.0-0.8); MONO % 5.3 % (0.0-10.0); NEUT # 7.1 K/uL (1.8-7.0); NEUT % 74.2 % (50.0-75.0); NRBC % 0.1 % (0.0-0.0); RED CELL DISTRIBUTION WIDTH 13.5 % (11.5-14.5)
[2017-10-18 11:42] LABS: RBC URINE < 1 /hpf (0-3); URINE BILIRUBIN NEGATIVE (NEGATIVE); URINE BLOOD NEGATIVE (NEGATIVE); URINE COLOR STRAW (YELLOW); URINE GLUCOSE (UA) NEG (Normal); URINE KETONE NEGATIVE (NEGATIVE); URINE LEUKOCYTE ESTERASE NEG Leu/uL (Negative); URINE PROTEIN NEGATIVE (NEGATIVE); URINE UROBILINOGEN 0.2-1.0 mg/dL (0.2-1.0); WBC URINE 1 /hpf (0-5)
[2017-10-18 11:44] LABS: WHITE BLOOD COUNT 9.5 K/uL (4.8-10.8)
[2017-10-18 11:58] LABS: ALB/GLOB RATIO 1.5 (1.0-2.1); ALCOHOL SERUM 33 mg/dl (0-10); ALKALINE PHOSPHATASE 57 U/L (38-126); ALT/SGPT 37 U/L (21-72); AST/SGOT 34 U/L (17-59); BILIRUBIN,TOTAL 0.4 mg/dl (0.2-1.3); BLOOD UREA NITROGEN 9 mg/dl (9-20); CALCIUM 9.5 mg/dL (8.4-10.2); CARBON DIOXIDE 23 mmol/L (22-30); CHLORIDE 103 mmol/L (98-107); GFR AFRICAN-AMERICAN > 60; GLUCOSE,RANDOM 93 mg/dL (75-110); POTASSIUM 3.9 MMOL/L (3.6-5.0); SODIUM 143 mmol/l (132-148); TOTAL PROTEIN 8.3 G/DL (6.3-8.2)
[2017-10-18 14:22] LABS: TROPONIN I 0.015 ng/mL (0.00-0.120)
[2017-10-18 15:26] VITALS: PULSE 76; O2SAT 98
--- NOTE | 2017-10-20 10:51 | CARD ---
APPROVED REPORT EKG Measurement Heart [id number] [place] 160P42 [id number] <Conclusion> Sinus tachycardia Otherwise normal ECG
== END 2017-10-18 15:26 | disposition home or self-care (01) ==
LOC: H.ER 10:36
DX: F14.10 Cocaine abuse, uncomplicated (principal); F10.129 Alcohol abuse with intoxication, unspecified; F41.9 Anxiety disorder, unspecified; E78.00 Pure hypercholesterolemia, unspecified; I25.2 Old myocardial infarction; Z79.82 Long term (current) use of aspirin
CPT/HCPCS: 80053; 81003; 82550; 82553; 82948; 84484; 85025; 93005; 99284; G0480; J7040

== ENCOUNTER 2018-09-25 02:39 | Emergency (ER) | payer BC ==
[2018-09-25 02:58] VITALS: BMI 27.9
--- NOTE | 2018-09-25 03:06 | ED PDOC ---
HPI: Chest Pain Time Seen by Provider: 09/25/18 03:04 Chief Complaint (Nursing): Chest Pain Chief Complaint (Provider): cp History Per: Patient (42 y/o male h/o [place] 1 year ago here with complaint of anxiety x 2 days associated with stress at work and chest pain x 30 min prior to ED arrival. Notes sharp shooting pain intermittent and subsequent shooting pain in left arm. Patient took 4 Asa, 3 propanolol; 2 simvastatin prior to coming to ED as he became anxious regarding arm pain. States he had THC 2 days ago. Admits to etoh today.) Past Medical History Reviewed: Historical Data, Nursing Documentation, Vital Signs Vital Signs: Last Vital Signs Temp 98.5 F 09/25/18 02:58 Pulse 94 H 09/25/18 02:58 Resp 18 09/25/18 02:58 BP 123/85 09/25/18 02:58 Pulse Ox 99 09/25/18 02:58 - Medical History PMH: Hypercholesterolemia Denies: Chronic Kidney Disease - Family History Family History: States: Unknown Family Hx - Home Medications Home Medications: Ambulatory Orders Medication Instructions Recorded RX: [place]-3 Fatty Acids/Fish Oil 1,000 mg PO BID 02/18/17 [Fish Oil 1,000 mg Capsule] RX: Rosuvastatin Calcium [Crestor] 5 mg PO DAILY 02/18/17 RX: Aspirin [Aspirin Chewable] 81 mg PO DAILY 06/02/17 - Allergies Allergies/Adverse Reactions: Allergies Allergy/AdvReac Type Severity Reaction Status Date / Time chlorpromazine HCl Allergy ANAPHYLAXIS Verified 09/25/18 02:58 [From Thorazine] lithium Allergy ANAPHYLAXIS Verified 09/25/18 02:58 shellfish derived Allergy ANAPHYLAXIS Verified 09/25/18 02:58 Review of Systems ROS Statement: Except As Marked, All Systems Reviewed And Found Negative Cardiovascular: Positive for: Chest Pain, Palpitations Physical Exam - Reviewed Nursing Documentation Reviewed: Yes Vital Signs Reviewed: Yes - Physical Exam Appears: Positive for: Well, Non-toxic, No Acute Distress Head Exam: Positive for: ATRAUMATIC, NORMAL INSPECTION, NORMOCEPHALIC Skin: Positive for: Normal Color, Warm, DRY Eye Exam: Positive for: EOMI, Normal appearance, PERRL ENT: Positive for: Normal ENT Inspection Neck: Positive for: Normal, Painless ROM Cardiovascular/Chest: Positive for: Regular Rate, Rhythm Respiratory: Positive for: CNT, Normal Breath Sounds Gastrointestinal/Abdominal: Positive for: Normal Exam, Soft Back: Positive for: Normal Inspection Extremity: Positive for: Normal ROM Neurologic/Psych: Positive for: Alert, Oriented - Laboratory Results Result Diagrams: 09/25/18 03:10 09/25/18 03:10 - ECG ECG Rhythm: Positive for: Sinus Rhythm (no ectopy no acute changes) O2 Sat by Pulse Oximetry: 99 Disposition - Clinical Impression Clinical Impression: Atypical chest pain - Patient ED Disposition Is Patient to be Admitted: Transfer of Care - Disposition Referrals: [facility] [Provider Group] Disposition Time: 06:00 Condition: STABLE Instructions: Chest Pain That Is Not Caused by the Heart (DC) Forms: [employer] (Mexican) Patient Signed Over To: Ashish Yu Handoff Comments: pending troponin and re-eval
[2018-09-25 03:31] LABS: BASO % 0.4 % (0.0-2.0); EOS # 0.1 K/uL (0.0-0.7); EOS % 1.5 % (0.0-4.0); HEMOGLOBIN 14.8 g/dL (12.0-18.0); LYMPH # 2.5 K/uL (1.0-4.3); LYMPH % 37.1 % (20.0-40.0); MEAN CELL VOLUME 87.5 fl (80.0-94.0); MEAN CORPUSCULAR HEMOGLOBIN 28.9 pg (27.0-31.0); MEAN CORPUSCULAR HGB CONC 33.1 g/dL (33.0-37.0); MEAN PLATELET VOLUME 7.8 fl (7.2-11.7); MONO # 0.4 K/uL (0.0-0.8); MONO % 6.2 % (0.0-10.0); NEUT # 3.7 K/uL (1.8-7.0); NEUT % 54.8 % (50.0-75.0); NRBC % 0.3 % (0.0-0.0); RBC 5.1 Mil/uL (4.40-5.90); RED CELL DISTRIBUTION WIDTH 13.1 % (11.5-14.5); WHITE BLOOD COUNT 6.8 K/uL (4.8-10.8)
[2018-09-25 03:34] LABS: BLOOD UREA NITROGEN 20 mg/dl (9-20); CALCIUM 9.1 mg/dL (8.4-10.2); GFR NON-AFRICAN AMERICAN > 60
[2018-09-25 05:04] LABS: BARBITURATES, UR NEGATIVE (NEGATIVE); BENZODIAZEPINES, UR NEGATIVE (NEGATIVE); OPIATES, UR NEGATIVE (NEGATIVE); PHENCYCLIDINE, UR NEGATIVE (NEGATIVE)
[2018-09-25 06:24] VITALS: BP 108/69; PULSE 60; RESP 19; TEMP 97.9
--- NOTE | 2018-09-25 08:36 | RAD ---
Date of service: 09/25/2018 HISTORY: cp COMPARISON: 06/02/2017 FINDINGS: LUNGS: No active pulmonary disease. PLEURA: No significant pleural effusion identified, no pneumothorax apparent. CARDIOVASCULAR: No aortic atherosclerotic calcification present. Normal cardiac size. No pulmonary vascular congestion. OSSEOUS STRUCTURES: No significant abnormalities. VISUALIZED UPPER ABDOMEN: Normal. OTHER FINDINGS: None. IMPRESSION: No active disease.
--- NOTE | 2018-09-25 09:13 | CARD ---
APPROVED REPORT Date of service: 09/25/2018 EKG Measurement Heart [id number] [place] 150P36 [id number] <Conclusion> Normal sinus rhythm Normal ECG
[2018-10-02 12:28] VITALS: O2SAT 99
== END 2018-09-25 07:15 | disposition home or self-care (01) ==
LOC: H.ER 02:39
DX: R07.89 Other chest pain (principal); I25.2 Old myocardial infarction; Z79.82 Long term (current) use of aspirin; E78.00 Pure hypercholesterolemia, unspecified
CPT/HCPCS: 71045; 80048; 83735; 84484; 85025; 93005; 99283; G0480

== ENCOUNTER 2019-02-07 11:11 | Emergency (ER) | payer BC ==
[2019-02-07 11:14] VITALS: BMI 27.4
--- NOTE | 2019-02-07 13:20 | ED PDOC ---
Upper Extremity Pain/Injury Additional History Per: Patient Additional Complaint(s): 43 y/o male comes to the ER c/o left ring finger pain and swelling. Patient reports my ring got stuck since last 2 days and not coming out. Patient visited [employer] store today who tried to cut the ring but started feeling pain, swell ing and purple discoloration of his ring finger which made him come to ER. Patient has intact sensory and motor. <Nicolas Tuttle - Last Filed: 02/07/19 14:43> <Rox Romero - Last Filed: 02/07/19 15:35> Time Seen by Provider: 02/07/19 11:55 Chief Complaint (Nursing): Finger,Hand,&Wrist Supervising Attending Note - Attestation: I have personally seen and examined this patient.: Yes I have fully participated in the care of the patient.: Yes <Rox Romero - Last Filed: 02/07/19 15:35> Past Medical History Vital Signs: Last Vital Signs Temp 98.4 F 02/07/19 11:14 Pulse 63 02/07/19 11:14 Resp 17 02/07/19 11:14 BP 113/72 02/07/19 11:14 Pulse Ox 96 02/07/19 11:14 - Medical History PMH: Hypercholesterolemia Denies: Chronic Kidney Disease - Family History Family History: States: Unknown Family Hx <Nicolas Tuttle - Last Filed: 02/07/19 14:43> Vital Signs: Last Vital Signs Temp 97.5 F L 02/07/19 15:15 Pulse 78 02/07/19 15:15 Resp 19 02/07/19 15:15 BP 126/78 02/07/19 15:15 Pulse Ox 98 02/07/19 15:15 <Rxo Romero - Last Filed: 02/07/19 15:35> - Home Medications Home Medications: Ambulatory Orders Medication Instructions Recorded [place]-3 Fatty Acids/Fish Oil [Fish 1,000 mg PO BID 02/18/17 Oil 1,000 mg Capsule] Rosuvastatin Calcium [Crestor] 5 mg PO DAILY 02/18/17 Aspirin [Aspirin Chewable] 81 mg PO DAILY 06/02/17 Naproxen [Naprosyn] 500 mg PO BID PRN #30 tablet 02/07/19 - Allergies Allergies/Adverse Reactions: Allergies Allergy/AdvReac Type Severity Reaction Status Date / Time chlorpromazine HCl Allergy ANAPHYLAXIS Verified 02/07/19 11:43 [From Thorazine] lithium Allergy ANAPHYLAXIS Verified 02/07/19 11:43 shellfish derived Allergy ANAPHYLAXIS Verified 02/07/19 11:43 Review of Systems Constitutional: Negative for: Fever Eyes: Negative for: Pain ENT: Negative for: Ear Pain, Ear Discharge Cardiovascular: Negative for: Chest Pain, Palpitations Respiratory: Negative for: Cough, Shortness of Breath, Hemoptysis Gastrointestinal: Negative for: Nausea Genitourinary Male: Negative for: Dysuria Musculoskeletal: Positive for: Other (Left ring finger swelling and pain). Negative for: Neck Pain, Shoulder Pain Neurological: Negative for: Weakness Psych: Negative for: Anxiety <Nicolas Tuttle - Last Filed: 02/07/19 14:43> Physical Exam - Physical Exam Appears: Positive for: No Acute Distress Head Exam: Positive for: NORMAL INSPECTION Skin: Positive for: Warm (bluish/red discoloration of Left ring finger with swelling. Intact sensory and motor ) Eye Exam: Positive for: Normal appearance ENT: Positive for: Normal ENT Inspection Neck: Positive for: Normal Cardiovascular/Chest: Positive for: Regular Rate, Rhythm Respiratory: Positive for: Normal Breath Sounds. Negative for: Decreased Breath Sounds, Stridor, Wheezing Gastrointestinal/Abdominal: Positive for: Normal Exam, Soft. Negative for: Tenderness Back: Positive for: Normal Inspection Extremity: Positive for: Other (bluish/red discoloration of Left ring finger with swelling. Intact sensory and motor ) Neurological/Psych: Positive for: Awake, Alert, Normal Tone, weld engineer II-XII <Nicolas Tuttle - Last Filed: 02/07/19 14:43> - ECG O2 Sat by Pulse Oximetry: 96 - Progress ED Course And Treament: A/P: 43 y/o male with swelling, pain and discoloration of ring finger due to stuck ring on finger. - Ring was cut and removed - Pain management Case discussed with Dr. Romero <Nicolas Tuttle - Last Filed: 02/07/19 14:43> Disposition - Patient ED Disposition Is Patient to be Admitted: No - Disposition Disposition: Routine/Home Disposition Time: 14:41 <Nicolas Tuttle - Last Filed: 02/07/19 14:43> - Disposition Disposition: Routine/Home <Rox Romero Khang - Last Filed: 02/07/19 15:35> - Clinical Impression Clinical Impression: Swelling of left ring finger, Ring or other jewelry causing external constriction, initial encounter - Disposition [facility]errals: [facility] [Provider [facility]] Condition: IMPROVED Additional Instructions: Return to ED if severe pain, numbness, tingling, weakness or discoloration gets worse f/u with PMD in 2 days Prescriptions: Naproxen [Naprosyn] 500 mg PO BID PRN #30 tablet PRN Reason: Pain, Moderate (4-7) Instructions: Wound Care (DC), Skin Abrasions (DC) Forms: [employer] (Romansh) Print Language: PASHTO Addendum Addendum: 02/07/19 15:24 Tetanus UTD Ring was successfully removed with ring cutter, superficial abrasion sustained during removal process, wound cleaned and covered with Bacitracin and sterile dressing. On reevaluation, sensation intact, MS 5/5, FROM, <2 sec cap refill. <Rox Romero F - Last Filed: 02/07/19 15:35>
[2019-02-07] MEDS ORDERED: Naproxen 500 MG TAB PO STA (13:24)
[2019-02-07] MEDS ORDERED: Naproxen 500 MG TAB PO ONE (13:38)
[2019-02-07 15:16] VITALS: BP 126/78; PULSE 78; RESP 19; TEMP 97.5; O2SAT 98
== END 2019-02-07 15:40 | disposition home or self-care (01) ==
LOC: H.ER 11:11
DX: M79.5 Residual foreign body in soft tissue (principal); W49.04XA Ring or other jewelry causing external constriction, initial encounter